=== PATIENT | male | born 1980 | race Caucasian/White ===

== ENCOUNTER 2022-05-12 22:23 | Emergency (ER) | payer MEDICAID, SELFPAY ==
[2022-05-12 23:02] VITALS: BP 124/77; PULSE 82; RESP 18; TEMP 36.5; O2SAT 98
--- NOTE | 2022-05-12 23:15 | DI.RAD_ITS ---
Exam(s) XR LUMBAR SPINE COMPLETE EXAM: XR LUMBAR SPINE COMPLETE CLINICAL HISTORY: pain TECHNIQUE: COMPARISON: No exams were available for comparison FINDINGS: Five views were obtained. The SI joints appear well maintained. There is slight loss of height of L 5-S1 intervertebral disc space consistent with disc degeneration. Otherwise intervertebral disc spac es are well maintained. There is a loss of the typical lumbar lordosis which may indicate muscle spa sm. There is no evidence of spondylolysis or spondylolisthesis. There are minimal hypertrophic degenerat shelbi changes of the facet joints at L4-5 and L5-S1. IMPRESSION: Mild degenerative findings as described above. RADIATION DOSE DELIVERED: Total DLP
--- NOTE | 2022-05-12 23:19 | ED.GENADUL_ITS ---
Discharge Plan Disposition Patient Disposition: HOME Condition: Stable Discharge Details Clinical Impression: Back pain, Sciatica Primary Care Provider: None,None ED Provider: Gabino Webb Home Meds and New Rx's Prescriptions: New gabapentin 300 mg capsule 300 mg PO TID Qty: 30 0RF prednisone 50 mg tablet 50 mg PO DAILY Qty: 5 0RF cyclobenzaprine 10 mg tablet 10 mg PO TID PRN (Reason: muscle spasm) Qty: 20 0RF Discharge Instructions Instructions: Sciatica (ED) Additional Instructions: You should follow up with your primary care provider especially if pain continues do not drink alcohol or drive if you take the cyclobenzaprine if you feel more ill, have fevers or difficulty urinating return tot he emergency department you can also take ibuprofen and tylenol follow dosing instructions on packaging Stand Alone Forms: Work Release Medical Decision Making 41 yo male who denies chronic medical problems comes in with 6 months of lower back pain but has worsened over the last few days. HE thinks it worsens when he is at work where he does frequent heavy lifting. He denies any falls or trauma. He denies difficulty urinating and no weakness. He has had subjective numbness in his left foot. He localizes the pain to the left lower lumbar region and states it radiates down the left leg. He denies fevers, chills, abdomen pain, difficulty urinating, ivdu. He arrives stable. He has tenderness to the left lower lumbar region. No saddle anesthesia, normal sensation in the feet and normal pulses, normal reflexes in the leg. suspect this is musculoskeletal back pain, possible disc herniation. No findings on exam to suggest cauda equina or spinal epidural abscess. Could also be sciatica. Will treat with flexeril and gabapentin and obtain plain films though suspicion for fracture low given lack of trauma. patient stable, xray shows disc space narrowing at l5-s1. Still no saddle anesthesia or concerning findings on exam. Will start him on short course of prednisone and gabapentin. Offered PT referral but he wants to discuss with his pcp first. Return precautions given Differential Diagnosis Differential Diagnosis: sciatica, disc herniation, muscle spasm Imaging Data Radiologic Study: Attestation: I personally reviewed and interpreted this imaging study as follows: Imaging: X-Ray Radiologist's impression: IMPRESSION: Minimal disc space narrowing at L5-S1 HPI General Mode of arrival: wheelchair . Date/Time Provider Initiated Documentation: 05/12/22 23:09 . Limitations to Documentation: no limitations . Information obtained by: patient . History of Present Illness 41 year old M presents to the emergency department with the chief complaint of back pain, described as moderate, and is localized to the back. Patient started experiencing this month(s) (6) and it has been constant. No relieving factors improve symptom(s), No exacerbating factors reported . Patient did receive the following treatments prior to arrival, NSAID Related Data Home Medications Medication Instructions Recorded Confirmed cyclobenzaprine 10 mg tablet 10 mg PO TID PRN muscle spasm #20 05/13/22 tabs gabapentin 300 mg capsule 300 mg PO TID #30 caps 05/13/22 prednisone 50 mg tablet 50 mg PO DAILY #5 tabs 05/13/22 Previous Rx's Medication Instructions Recorded cyclobenzaprine 10 mg tablet 10 mg PO TID PRN muscle spasm #20 05/13/22 tabs gabapentin 300 mg capsule 300 mg PO TID #30 caps 05/13/22 prednisone 50 mg tablet 50 mg PO DAILY #5 tabs 05/13/22 Allergies Allergy/AdvReac Type Severity Reaction Status Date / Time No Known Allergies Allergy Unverified 05/12/22 23:07 General Stated Complaint: Nk/Back Pain COLT: 3 Review of Systems All systems reviewed & are unremarkable except as noted in HPI and below Constitutional Constitutional: Denies chills, Denies fever(s) and Denies weakness Cardiovascular Cardiovascular: Denies chest pain and Denies dyspnea Respiratory Respiratory: Denies cough and Denies dyspnea Gastrointestinal Gastrointestinal: Denies abdominal pain, Denies nausea and Denies vomiting Genitourinary Genitourinary: Denies dysuria Neurologic Neurologic: Denies weakness [facility] All Active Problems (Updated 05/13/22 @ 00:43 by Gabino Webb MD) Back pain (Acute) Sciatica (Acute) Social History Smoking/Tobacco Use Status: Current every day Smoking risk assessment performed?: Yes Alcohol Intake: never Substance use type: does not use Do you feel safe at home: Yes Do you feel safe in your relationship?: Yes Exam Const General: no acute distress Orientation: alert HENMT Head: normal to inspection Ears: external ears normal General nose exam: external nose normal Mouth: moist mucous membranes Eyes General: appearance normal, both eyes and all related structures Neck Neck: normal visual inspection Resp Effort & Inspection: normal respiratory effort and able to speak in complete sentences Cardio Rate: regular rate Back/Spine/Pelvis Back: no CVA tenderness Skin General skin exam: no rashes or lesions noted Neuro General: patient alert and patient oriented x3 Extrem General: normal to inspection Psych Mental Status: mental status grossly normal Course Vital Signs Vital signs: Vital Signs Temperature 36.5 C 05/12/22 23:02 Pulse 82 05/12/22 23:02 Respiratory Rate 18 05/12/22 23:02 Blood Pressure 124/77 05/12/22 23:02 Pulse Oximetry 98 05/12/22 23:02 Temperature 36.5 C 05/12/22 23:02 Temperature Source Tympanic 05/12/22 23:02 Pulse 82 05/12/22 23:02 Respiratory Rate 18 05/12/22 23:02 Respiratory Effort 05/12/22 23:07 Blood Pressure 124/77 05/12/22 23:02 Blood Pressure Position Supine 05/12/22 23:02 Pulse Oximetry 98 05/12/22 23:02 Oxygen Delivery Method Room Air 05/12/22 23:02 Oxygen Flow Rate 0 05/12/22 23:02 Pain Level 10 05/12/22 23:02 Comment 05/12/22 23:02
[2022-05-12] MEDS: Gabapentin 300 MG CAP PO (23:26)
[2022-05-12] MEDS: Cyclobenzaprine 10 MG TAB PO (23:26)
--- NOTE | 2022-05-13 00:27 | DI.VRAD_ITS ---
PROCEDURE INFORMATION: Exam: XR Lumbosacral Spine Exam date and time: 05/12/2022 23:33 Age: 41 years old Clinical indication: Low back pain TECHNIQUE: Imaging protocol: Radiologic exam of the lumbosacral spine. Views: 4 or 5 views. COMPARISON: No relevant prior studies available. FINDINGS: Bones/joints: Minimal disc space narrowing at L5-S1. No acute fracture or subluxation. The normal lumbar lordosis is slightly straightened. Soft tissues: Unremarkable. IMPRESSION: Minimal disc space narrowing at L5-S1. Dictated and Authenticated by: Rashida Blair MD. Ordering:DEDE Lloyd MD
[2022-05-13] MEDS: predniSONE 20 MG TAB 60 MG PO (00:50)
== END 2022-05-13 00:56 | disposition home or self-care (01) ==
PROVIDERS: Emergency Provider Emergency Medicine
DX: M54.42 Lumbago with sciatica, left side (principal); F17.200 Nicotine dependence, unspecified, uncomplicated; M48.07 Spinal stenosis, lumbosacral region
CPT/HCPCS: 99283; 72110; 99284; J7512